=== PATIENT | female | born 1940 | race Caucasian/White ===

== ENCOUNTER 2018-02-11 14:53 | Emergency (ER) | payer MEDICARE ==
[~2018-02-11] VITALS: Ht 165.1 cm; Wt 82.6 kg
[2018-02-11] MEDS ORDERED: METFORMIN HCL500 MG PO (15:16)
[2018-02-11] MEDS ORDERED: AMARYL2 MG PO (15:18)
[2018-02-11] MEDS ORDERED: CRESTOR5 MG PO (15:18)
[2018-02-11] MEDS ORDERED: SYNTHROID88 MCG PO (15:19)
[2018-02-11] MEDS ORDERED: VITAMIN D2000 UNIT PO (15:24)
[2018-02-11] MEDS ORDERED: CINNAMON500 MG PO (15:24)
[2018-02-11] MEDS ORDERED: LUTEIN20 MG PO (15:25)
[2018-02-11] MEDS ORDERED: FISH OIL 1,001000 M2 PO (15:25)
[2018-02-11 15:59] VITALS: BP 142/62
== END 2018-02-11 16:01 | disposition home or self-care (01) ==
LOC: M.ERS 14:53
DX: M79.674 Pain in right toe(s) (principal); E11.9 Type 2 diabetes mellitus without complications; E78.5 Hyperlipidemia, unspecified; E03.9 Hypothyroidism, unspecified; Z88.0 Allergy status to penicillin; Z88.2 Allergy status to sulfonamides; Z91.012 Allergy to eggs; Z88.8 Allergy status to other drugs, medicaments and biological substances; Z91.018 Allergy to other foods

== ENCOUNTER → 2018-09-27 | Outpatient (CLI) | payer MEDICARE ==
[~2018-09-27] MED LIST: AMARYL2 MG PO; CINNAMON500 MG PO; CRESTOR5 MG PO; FISH OIL 1,001000 M2 PO; LUTEIN20 MG PO; METFORMIN HCL500 MG PO; SYNTHROID88 MCG PO; VITAMIN D2000 UNIT PO
== END ==
LOC: M.MRI 09-24 12:30 → M.LAB 09-24 12:30 → M.MRI 09-24 13:30 → M.LAB 07:00 → M.MRI 08:30
PROVIDERS: Nurse Practitioner Family
DX: R41.3 Other amnesia (principal); E23.6 Other disorders of pituitary gland

== ENCOUNTER → 2020-11-26 | Outpatient (CLI) | payer MEDICARE | END | disposition home or self-care (01) | LOC: M.RAD 14:30 | PROVIDERS: ATTEND Physician Assistant | DX: M25.551 Pain in right hip (principal); E11.9 Type 2 diabetes mellitus without complications; E03.9 Hypothyroidism, unspecified; Z98.41 Cataract extraction status, right eye; E78.5 Hyperlipidemia, unspecified; Z98.890 Other specified postprocedural states; Z79.899 Other long term (current) drug therapy ==

== ENCOUNTER → 2020-12-24 | Outpatient (CLI) | payer MEDICARE | LOC: M.CT 07:32 | PROVIDERS: ATTEND Family Medicine | DX: M16.11 Unilateral primary osteoarthritis, right hip (principal) ==

== ENCOUNTER → 2020-12-29 | Outpatient (CLI) | payer MEDICARE | LOC: M.MRI 07:13 | PROVIDERS: ATTEND Family Medicine | DX: S39.022A Laceration of muscle, fascia and tendon of lower back, initial encounter (principal); M16.11 Unilateral primary osteoarthritis, right hip; M47.816 Spondylosis without myelopathy or radiculopathy, lumbar region; X58.XXXA Exposure to other specified factors, initial encounter; Y93.89 Activity, other specified; Y92.89 Other specified places as the place of occurrence of the external cause; Y99.8 Other external cause status ==

== ENCOUNTER → 2021-01-04 | Outpatient (CLI) | payer MEDICARE | LOC: M.ULTRA 09:15 | DX: N85.00 Endometrial hyperplasia, unspecified (principal) ==

== ENCOUNTER → 2021-01-12 | Outpatient (CLI) | payer MEDICARE | LOC: M.MRI 01-09 07:30 → M.NUC 10:15 | PROVIDERS: ATTEND Orthopaedic Surgery | DX: M47.26 Other spondylosis with radiculopathy, lumbar region (principal); M17.12 Unilateral primary osteoarthritis, left knee; M48.061 Spinal stenosis, lumbar region without neurogenic claudication ==